=== PATIENT | female | born 1980 | race Caucasian/White ===

== ENCOUNTER 2025-07-13 04:17 | Observation (INO) ==
[2025-07-13] MEDS ORDERED: IOPAMIDOL 100 ML BOTTLE IV ONE (04:18)
[2025-07-13] MEDS: KETOROLAC 15 MG/ML VIAL IV ONE (04:34)
[2025-07-13] MEDS: 0.9 % SODIUM CHLORIDE 1,000 ML IV ONE (04:34)
[2025-07-13] MEDS: ONDANSETRON 4 MG/2 ML VIAL IV ONE (04:35)
[2025-07-13 04:54] LABS: Basophils # (Auto) 0.03 K/mcL (0.00-0.30); Basophils % (Auto) 0.2 % (0.0-2.0); Eosinophils # (Auto) 0.22 K/mcL (0.00-0.70); Eosinophils % (Auto) 1.7 % (0.0-7.0); Hematocrit 40.3 % (34.1-44.9); Hemoglobin 13.1 g/dL (11.2-15.7); Lymphocytes # (Auto) 2.29 K/mcL (1.50-4.80); Lymphocytes % (Auto) 17.4 % (15.5-49.0); Mean Corpuscular HGB Conc 32.5 g/dL (31.0-36.0); Monocytes # (Auto) 0.74 K/mcL (0.10-0.90); Monocytes % (Auto) 5.6 % (1.0-12.0); Neutrophils % (Auto) 74.9 % (38.0-78.0); Platelet Count 258 K/mcL (140-440); RBC 4.33 M/mcL (3.59-5.38); WBC 13.1 K/mcL (4.5-11.0)
[2025-07-13 05:10] LABS: ALT/SGPT 20 U/L (<40); AST/SGOT 15 U/L (<32); Albumin 4.2 gm/dL (3.2-5.2); Albumin/Globulin Ratio 1.3 (1.0-2.3); Alkaline Phosphatase 88 U/L (39-117); Anion Gap 14.0 (8.0-16.0); Bilirubin,Total 0.3 mg/dL (0.1-1.0); Blood Urea Nitrogen 14 mg/dL (6-20); Calcium 9.4 mg/dL (8.6-10.4); Carbon Dioxide 21 mmol/L (22-30); Chloride 104 mmol/L (96-108); Globulin 3.2 gm/dL (2.2-3.7); Glucose 130 mg/dL (70-105); Potassium 3.9 mmol/L (3.3-5.1); Sodium 139 mmol/L (133-145)
[2025-07-13 05:20] LABS: Bilirubin,Urine NEGATIVE (Negative); Color,Urine LT. YELLOW; Glucose,Urine (UA) NEGATIVE (Negative); Ketones,Urine NEGATIVE (Negative); Leukocyte Esterase,Urine NEGATIVE /uL (Negative); PH,Urine 6.0 (5.0-9.0); Protein,Urine NEGATIVE (Negative); Specific Gravity,Urine 1.015 (1.000-1.035); Urobilinogen,Urine 0.2 mg/dL
[2025-07-13] MEDS ORDERED: NALOXONE HCL 0.4 MG/ML VIAL IV PRN ×2 (05:33→10:17)
[2025-07-13] MEDS ORDERED: ONDANSETRON 4 MG/2 ML VIAL IV PRN ×2 (05:33→10:17)
[2025-07-13] MEDS: 0.9 % SODIUM CHLORIDE 1,000 ML IV SCH (06:36)
[2025-07-13] MEDS: PIPERACILLIN SODIUM/TAZOBACTAM 3.375 GM in DEXTROSE 5% IN WATER 100 ML IV SCH (06:38)
[2025-07-13] MEDS: PIPERACILLIN SODIUM/TAZOBACTAM 3.375 GM in DEXTROSE 5% IN WATER 50 ML IV ONE (06:43)
[2025-07-13] MEDS ORDERED: fentaNYL 100 MCG/2 ML VIAL ONE (08:46)
[2025-07-13] MEDS ORDERED: PROPOFOL 200 MG/20 ML VIAL IV ONE (08:46)
[2025-07-13] MEDS ORDERED: ONDANSETRON 4 MG/2 ML VIAL ONE (08:47)
[2025-07-13] MEDS ORDERED: LIDOCAINE 2% PF 5 ML VIAL ONE (08:47)
[2025-07-13] MEDS ORDERED: DEXAMETHASONE 10 MG/ML VIAL ONE (08:47)
[2025-07-13] MEDS ORDERED: ROCURONIUM 10 MG/ML ML IV ONE (08:47)
[2025-07-13] MEDS ORDERED: SUGAMMADEX SODIUM 200 MG/2 ML VIAL IV ONE (08:49)
[2025-07-13] MEDS ORDERED: PHENYLephrine 1 MG/10 ML SYRINGE (ANEST) ONE (10:14)
[2025-07-13] MEDS ORDERED: IPRATROPIUM/ALBUTEROL 3 ML AMPUL.NEB NEB PRN (10:17)
[2025-07-13] MEDS ORDERED: METHOCARBAMOL 1,000 MG/10 ML VIAL IV PRN (10:17)
[2025-07-13] MEDS ORDERED: fentaNYL 100 MCG/2 ML VIAL IV PRN (10:17)
[2025-07-13] MEDS ORDERED: diphenhydrAMINE 50 MG/ML VIAL IV PRN (10:17)
[2025-07-13] MEDS ORDERED: MEPERIDINE 25 MG/ML VIAL IV PRN (10:17)
[2025-07-13] MEDS: ACETAMINOPHEN 1,000 MG/100 ML BAG IV ONE (10:47)
[2025-07-13] MEDS: BUPIVACAINE W/EPI 0.25% 50 ML VIAL IJ ONE (11:43)
[2025-07-13 14:59] VITALS: TEMP 97.8; O2SAT 96
== END 2025-07-13 14:50 | disposition home or self-care (01) ==
LOC: ED 04:17 → MEDSUR 04:17
PROVIDERS: ADMIT Surgery; ATTEND Surgery
PROC: LAPAPPY (ICD-10-PCS; 2025-07-13 09:45)